=== PATIENT | male | born 1940 | race Caucasian/White ===

== ENCOUNTER → 2016-09-10 | Outpatient (CLI) | payer OTHER ==
[~2016-09-10] MED LIST: AMLO-114 PO; CALCTAB5 PO; CHOLTAB3 PO; FLM4 PO; HYDR5TAB27 PO; LOVA40TA4 PO; METO25TA3 PO; MULT-506 PO; OMEG10007 PO
[2016-09-10 12:47] LABS: BASO % 0.3 %; BASO ABS # 0.02 K/uL (0-0.2); COMPLETE YES; EOS % 3.8 %; IG% 0.3 %; LYMPH % 16.4 %; LYMPH ABS # 1.08 K/uL (1.2-3.4); MEAN CELL VOLUME 92.4 fL (80-100); MEAN CORPUSCULAR HEMOGLOBIN 31.9 pg (25-34); MEAN CORPUSCULAR HGB CONC 34.5 g/dl (32-36); MONO % 10.5 %; NEUT % 68.7 %; PLATELET COUNT 206 K/uL (130-400); RED BLOOD COUNT 4.76 M/uL (4.7-6.1); WHITE BLOOD COUNT 6.59 K/uL (4.8-10.8)
[2016-09-10 13:42] LABS: ALT/SGPT 23 U/L (12-78); AST/SGOT 23 U/L (15-37); BLOOD UREA NITROGEN 13 mg/dl (7-18); BUN/CREATININE RATIO 13.3 (10-20); CALCIUM 8.8 mg/dl (8.5-10.1); CARBON DIOXIDE 23 mmol/L (21-32); CHLORIDE 110 mmol/L (98-107); GLUCOSE 93 mg/dl (70-99); POTASSIUM 3.8 mmol/L (3.5-5.1); SODIUM 144 mmol/L (136-145)
[2016-09-10 13:53] LABS: ALB/GLOB RATIO 1.2 (0.9-2); ALKALINE PHOSPHATASE 91 U/L (45-117); CHOLESTEROL 210 mg/dl (0-200); HDL CHOLESTEROL 52 mg/dl; LDL CHOLESTEROL CALCULATED 143 mg/dl; TRIGLYCERIDES 77 mg/dl (0-150); VERY LOW DENSITY LIPOPROT CALC 15 mg/dl
--- NOTE | 2016-09-16 06:13 | CODING QUERY MEDICAL NECESSITY ---
SUPPORTING DIAGNOSIS NEEDED Dr. Szymanski, A supporting diagnosis is required for the test/procedure performed on this patient in order for us to be reimbursed by the patient's insurance. Please provide a supporting diagnosis for the following test/procedure listed below next to the test name along with your signature. *If there is no additional diagnosis for this patient that would support the following test/procedure please document that below next to the test/procedure. Test(s)/Procedure(s) that require a supporting diagnosis: * ([id number]) B12 VITAMIN LEVEL DIAGNOSIS: DATE OF SERVICE: 09/10/16 Provider Signature: Date: Thank you Rhys Naidu [facility] Information Management Once completed, please kindly fax back to [phone] For questions please call [phone]
== END | disposition home or self-care (01) ==
LOC: C.LABPBG 09:09
PROVIDERS: ATTEND Internal Medicine
DX: Z87.898 Personal history of other specified conditions (principal)

== ENCOUNTER → 2016-09-30 | Outpatient (CLI) | payer OTHER | END | disposition home or self-care (01) | LOC: C.PATHSPEC 17:41 | PROVIDERS: ATTEND Plastic Surgery | DX: C44.319 Basal cell carcinoma of skin of other parts of face (principal) ==

== ENCOUNTER → 2017-12-14 | Outpatient (CLI) | payer OTHER ==
[~2017-12-14] MED LIST changes: -AMLO-114 PO; +AMLO10TA3 PO; -METO25TA3 PO; +METO25TA4 PO
[2017-12-14 16:43] LABS: BASO % 0.1 %; BASO ABS # 0.01 K/uL (0-0.2); EOS % 4.4 %; EOS ABS # 0.35 K/uL (0-0.5); HEMATOCRIT 41.7 % (42-52); HEMOGLOBIN 13.9 g/dL (14.0-18.0); IG# 0.02 K/uL (0.00-0.02); LYMPH % 16.5 %; LYMPH ABS # 1.32 K/uL (1.2-3.4); MEAN CELL VOLUME 93.9 fL (80-100); MEAN CORPUSCULAR HEMOGLOBIN 31.3 pg (25-34); MEAN CORPUSCULAR HGB CONC 33.3 g/dl (32-36); MEAN PLATELET VOLUME 10.2 fL (7.4-10.4); MONO % 10.7 %; MONO ABS # 0.85 K/uL (0.11-0.59); NEUT ABS # 5.43 K/uL (1.4-6.5); PLATELET COUNT 201 K/uL (130-400); RED CELL DISTRIBUTION WIDTH CV 13.9 % (11.5-14.5); RED CELL DISTRIBUTION WIDTH SD 48.1 fL (36.4-46.3); WHITE BLOOD COUNT 7.98 K/uL (4.8-10.8)
[2017-12-14 17:13] LABS: ALBUMIN 3.8 gm/dl (3.4-5.0); ALKALINE PHOSPHATASE 95 U/L (45-117); ALT/SGPT 21 U/L (12-78); AST/SGOT 24 U/L (15-37); BLOOD UREA NITROGEN 23 mg/dl (7-18); CALCIUM 8.6 mg/dl (8.5-10.1); CARBON DIOXIDE 25 mmol/L (21-32); CHOLESTEROL 145 mg/dl (0-200); CREATININE 0.84 mg/dl (0.60-1.40); GLUCOSE 97 mg/dl (70-99); LDL CHOLESTEROL CALCULATED 62 mg/dl; POTASSIUM 4.2 mmol/L (3.5-5.1); SODIUM 139 mmol/L (136-145); TOTAL PROTEIN 6.8 gm/dl (6.4-8.2)
== END | disposition home or self-care (01) ==
LOC: C.LABPBG 14:27
PROVIDERS: ATTEND Internal Medicine
DX: N40.1 Benign prostatic hyperplasia with lower urinary tract symptoms (principal); I10 Essential (primary) hypertension; M54.5 Low back pain; G47.33 Obstructive sleep apnea (adult) (pediatric); E78.5 Hyperlipidemia, unspecified; R41.9 Unspecified symptoms and signs involving cognitive functions and awareness; G30.9 Alzheimer's disease, unspecified; F02.80 Dementia in other diseases classified elsewhere, unspecified severity, without behavioral disturbance, psychotic disturbance, mood disturbance, and anxiety

== ENCOUNTER 2020-01-03 18:43 | Inpatient (IN) ==
[2020-01-03] MEDS ORDERED: SODIUM CHLORIDE 0.9% 500 ML IV ONE (19:06)
[2020-01-03 19:32] LABS: Eosinophils % (auto) 1.2 %; Hematocrit (blood only) 39.8 % (42-52); Hemoglobin 13.5 g/dL (14.0-18.0); Immature Granulocytes # (auto) 0.03 K/uL (0.00-0.02); Immature Granulocytes % (auto) 0.4 %; Lymphocytes % (auto) 12.3 %; Mean Corpuscular Hemoglobin 31.8 pg (25-34); Mean Corpuscular Hgb Conc 33.9 g/dL (32-36); Mean Corpuscular Volume 93.6 fL (80-100); Mean Platelet Volume 9.8 fL (7.4-10.4); Monocytes # (auto) 0.73 K/uL (0.11-0.59); Neutrophils # (auto) 6.24 K/uL (1.4-6.5); Neutrophils % (auto) 77.1 %; Platelet Count 223 K/uL (130-400); RDW Coefficient of Variation 14.6 % (11.5-14.5); RDW Standard Deviation 49.5 fL (36.4-46.3); Red Blood Count 4.25 M/uL (4.7-6.1)
[2020-01-03 19:42] LABS: INR 1.2 (0.9-1.1); Partial Thromboplastin Ratio 0.7; Partial Thromboplastin Time 20.9 Seconds (21.0-31.0); Prothrombin Time 12.9 Seconds (9.0-12.0)
[2020-01-03 19:49] LABS: Alanine Aminotransferase 14 U/L (12-78); Albumin Level 2.9 gm/dl (3.4-5.0); Aspartate Aminotransferase 19 U/L (15-37); BUN Creatinine Ratio 22.5 (10-20); Blood Urea Nitrogen 22 mg/dl (7-18); Calcium 8.9 mg/dl (8.5-10.1); Carbon Dioxide 26 mmol/L (21-32); Chloride 106 mmol/L (98-107); Est GFR (African American) 83.5; Glucose 99 mg/dl (70-99); Lipase 99 U/L (73-393); Magnesium 2.2 mg/dl (1.8-2.4); Sodium 138 mmol/L (136-145)
--- NOTE | 2020-01-03 19:52 | XRay Report ---
XR chest 1V portable HISTORY: Atypical Chest Pain COMPARISON: Chest 06/12/2019. FINDINGS: There are low lung volumes. The heart is normal in size. No pleural effusions. No pneumotho rax. Small focal nodular density within the right midlung zone. This is nonspecific but could represe nt a nipple shadow. Otherwise, lungs are clear. Degenerative changes within the shoulders. No evidenc e for pulmonary edema. IMPRESSION: 1. Small focal nodular density within the right midlung zone. This could represent a nipple shadow. F ollow-up PA and lateral views of the chest with nipple markers can be performed on a nonemergent basi s for further evaluation. 2. Otherwise, no acute process within the chest. ACT 112: Negative or not required by law. Electronically signed by: Dillon Delong M.D. 01/03/2020 7:51 PM
[2020-01-03 19:54] LABS: Albumin Globulin Ratio 0.8 (0.9-2); Alkaline Phosphatase 102 U/L (45-117); Globulin 3.5 gm/dl (2.5-4.0); Total Protein 6.4 gm/dl (6.4-8.2); Troponin I < 0.015 ng/ml (0-0.045)
[2020-01-03] MEDS ORDERED: IOVERSOL 100ml IV ONE (22:17)
--- NOTE | 2020-01-03 22:25 | Emergency Department Note ---
Impression & Plan Hematochezia, Dementia, Atrial fibrillation, On apixaban therapy ED Provider Note NAME: ELSY CANO AGE: 79 SEX: M ARRIVES VIA: Ambulance INFORMANT: SNF, EMS ED PROVIDER(S): Delmer Nayak MD CHIEF COMPLAINT: GIB PLAN: Disposition: Admit MEDICAL DECISION MAKING: The patient is a pleasant 79-year-old gentleman with a past medical history of dementia, hypertension, hyperlipidemia, A. fib on Eliquis who presents emerge department from [facility] for several days of rectal bleeding. HPI is limited due to the patient's dementia. On arrival the patient is pleasantly confused no acute distress, afebrile stable vital signs. EKG without overt acute ischemia. Chest x-ray with out acute process though question of nodular density versus artifact. WBC and platelets within normal limits. H/H 13.5/39.8 similar to prior values in June. Chemistry without acidosis. BUN is elevated however at 22. Electrolytes and LFTs unremarkable. Troponin negative/undetectable. CT of the abdomen pelvis was performed and per preliminary stat rad report demonstrates fecal impaction with associated perirectal stranding consistent with stercoral colitis. On return from CT the patient did have a blowout and his brief which demonstrated dark brown-maroon stool that was Hemoccult positive. Attempt at rectal exam was unsuccessful as the patient had significant discomfort which would further reduce support stercoral colitis/proctitis. Suspect source of bleeding is most likely lower GI related to stercoral colitis however will provide Protonix bolus for possible upper GI source. Given ongoing hematochezia reasonable to admit the patient for further evaluation and management. Patient was developing restlessness, ordered for evening Sertraline and Seroquel in additional to patient's Haldol (given IV ). Case was discussed with Dr. Lancaster, [facility] [place], who will evaluate the patient for admission. Triage Nursing notes reviewed and agree them. Prior medical records reviewed Vital Signs: reviewed and remarkable for no significant abnormalities Differential diagnosis: Diverticulosis, AVM, coagulopathy, colitis, inflammatory bowel disease, malignancy, Sadaf-Novoa tear, esophagitis, peptic ulcer disease, variceal bl eed, gastritis, epistaxis, fissure, hemorrhoids, as well as other pathologies. ER treatment provided: See below. Diagnostics interpreted by me: ECG: Atrial fibrillation, 61 bpm, no ectopy, no overt ST elevation or depress ion, QTC 432, QRS 88. Cardiac Monitoring: An order for continuous cardiac monitoring was placed and demonstrated atrial fibrillation, 61 bpm, no ectopy. Laboratory studies: See below Imaging studies: XR chest 1V portable HISTORY: Atypical Chest Pain COMPARISON: Chest 06/12/2019. FINDINGS: There are low lung volumes. The heart is normal in size. No pleural effusions. No pneumothorax. Small focal nodular density within the right midlung zone. This is nonspecific but could represent a nipple shadow. Otherwise, lungs are clear. Degenerative changes within the shoulders. No evidence for pulmonary edema. IMPRESSION: 1. Small focal nodular density within the right midlung zone. This could represent a nipple shadow. Follow-up PA and lateral views of the chest with nipple markers can be performed on a nonemergent basis for further evaluation. 2. Otherwise, no acute process within the chest. [facility]RAD Preliminary Findings Only See Final Report For Complete Findings CT ABDOMEN & PELVIS With Contrast: Moderate stool distends the rectum suggestive of fecal impaction. Mild mucosal enhancement of the rectum with perirectal fat stranding could indicate stercoral colitis. No free air or free fluid. Diverticulosis without diverticulitis. No bowel obstruction. Normal appendix. Coronary artery calcifications. Moderate to severe atherosclerosis. Large nonenhancing exophytic cyst in the upper right kidney measuring approximately 17 cm in maximum diameter appears unchanged. Additional nonenhancing cyst in the upper right kidney measuring 2.7 cm is stable no hydronephrosis or nephrolithiasis. Prostatomegaly. Recommend correlation with PSA. Bladder wall thickening may be r elated to chronic bladder outlet obstruction. Recommend correlation with urinalysis to exclude cystitis. Dextroscoliosis with multilevel degenerative changes of the lumbar spine. Radiologist: Any Desai MD Study ready at 22:24 and initial results transmitted at 22:47 Consultation(s): Case was discussed with Dr. Lancaster, [facility] [place], who will evaluate the lor ent for admission. HPI: The patient is a pleasant 79-year-old gentleman with a past medical history of dementia, hypertension, hyperlipidemia, A. fib on Eliquis who presents emerge department from [facility] for several days of rectal bleeding. HPI is limited due to the patient's dementia. ROS: See above HPI for pertinent positives & negatives. ROS is limited due to dementia. PAST MEDICAL HISTORY:See Below PAST SURGICAL HISTORY:See Below FAMILY HISTORY:See Below SOCIAL HISTORY:See Below HOME MEDICATIONS:See Below ALLERGIES:See Below VITALS:See Below PHYSICAL EXAMINATION: GENERAL: Awake, alert, pleasantly confused, fatigued-appearing, in no distress HENT: Normocephalic, atraumatic. Oropharynx with dry mucous membranes and otherwise unremarkable. EYES: Normal conjunctiva. Sclera non-icteric. NECK: Supple. No nuchal rigidity. FROM. No JVD. RESPIRATORY: Clear to auscultation. CARDIAC: Regular rate, irregular rhythm. Extremities warm and well perfused. Pulses equal. ABDOMEN: Soft, non-distended. No tenderness to palpation. No rebound or guarding. No masses. RECTAL: Dark brown/maroon stools, hemeoccult positive. Kay-anal area with beefy erythematous rash. MUSCULOSKELETAL: Chest examination reveals no tenderness. The back is symmetrical on inspection without obvious abnormality. There is no CVA tenderness to palpation. No joint edema. LOWER EXTREMITIES: Calves are equal size bilaterally and non-tender. No edema. No discoloration. NEURO: Normal sensorium. No sensory or motor deficits noted. SKIN: No rash or jaundice noted. Delmer Nayak MD Past Med/Surg History Medical History Arthritis Atrial fibrillation Dementia HLD (hyperlipidemia) HTN (hypertension) Meningioma Renal cyst Surgical History H/O total knee replacement Inguinal hernia Family History Mother , age 87 of breast cancer. 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68, 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, 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 Feels Safe at Home: Yes Allergies Allergies Allergy/AdvReac Type Severity Reaction Status Date / Time Penicillins Allergy Unknown rash Verified 06/12/19 12:31 valacyclovir [From Valtrex] AdvReac Dizziness Verified 06/12/19 12:31 Home Meds Home Medications Medication Instructions Recorded Confirmed Fish Oil 1 cap PO QAM 03/15/18 01/03/20 amlodipine 10 mg PO QAM 03/15/18 01/03/20 donepezil 23 mg PO QAM 03/15/18 01/03/20 dutasteride 0.5 mg PO PM 03/15/18 01/03/20 lovastatin 40 mg PO PM 03/15/18 01/03/20 metoprolol succinate 25 mg PO QAM 03/15/18 01/03/20 alfuzosin 10 mg PO PM 06/03/18 01/03/20 acetaminophen 1,000 mg PO DAILY 06/12/19 01/03/20 cyanocobalamin (vitamin B-12) 1,000 mcg PO QAM 06/12/19 01/03/20 [Vitamin B-12] memantine 5 mg PO BID 06/12/19 01/03/20 mirabegron [Myrbetriq] 50 mg PO QAM 06/12/19 01/03/20 sertraline 50 mg PO PM 06/12/19 01/03/20 Abh Gel 1 applic TOPICAL BID 01/03/20 01/03/20 Frozen Nutritional Treat 1 dose PO DAILY 01/03/20 01/03/20 acetaminophen [Tylenol] 650 mg PO Q6 PRN 01/03/20 01/03/20 bisacodyl [Dulcolax (bisacodyl)] 10 mg PA UD PRN 01/03/20 01/03/20 haloperidol lactate [Haldol] 5 mg IM Q6 PRN 01/03/20 01/03/20 quetiapine [Seroquel] 25 mg PO DAILY 01/03/20 01/03/20 quetiapine [Seroquel] 50 mg PO HS 01/03/20 01/03/20 sennosides-docusate sodium 1 tab-cap PO BID 01/03/20 01/03/20 [Senokot-S] sertraline 100 mg PO QPM 01/03/20 01/03/20 tramadol [Ultram] 50 mg PO TID 01/03/20 01/03/20 Previous Rx's Medication Instructions Recorded apixaban [Eliquis] 5 mg PO BID #60 tab 03/16/18 Results & Data (ED) Vital Signs Vital Signs - 24 hr 01/03/20 18:51 01/03/20 18:58 01/03/20 19:00 Temperature Temperature Source Pulse Rate 69 69 71 Pulse Rate [Apical] Pulse Rate from SpO2 Sensor 68 68 Respiratory Rate 19 21 17 Respiratory Effort / Characteristics Respiratory Depth Blood Pressure 111/63 Blood Pressure [Left Arm] Blood Pressure Mean 68 Blood Pressure Mean [Left Arm] Pulse Oximetry 96 96 Oxygen Delivery Method Sepsis Recent Fever Within 48 Hours Sepsis New/Unexplained Change in Mental Status Sepsis Action Taken by Nursing 01/03/20 19:10 01/03/20 19:16 01/03/20 19:20 Temperature 36.7 C Temperature Source Axillary Pulse Rate 72 57 L 63 Pulse Rate [Apical] Pulse Rate from SpO2 Sensor 67 Respiratory Rate 17 20 17 Respiratory Effort / Characteristics Non-Labored Respiratory Depth Normal Blood Pressure 111/63 Blood Pressure [Left Arm] Blood Pressure Mean 79 Blood Pressure Mean [Left Arm] Pulse Oximetry 97 96 Oxygen Delivery Method Room Air Sepsis Recent Fever Within 48 Hours No Sepsis New/Unexplained Change in Mental Status No Sepsis Action Taken by Nursing No Action Required 01/03/20 19:30 01/03/20 19:31 01/03/20 19:40 Temperature Temperature Source Pulse Rate 64 63 68 Pulse Rate [Apical] Pulse Rate from SpO2 Sensor 67 65 61 Respiratory Rate 19 20 20 Respiratory Effort / Characteristics Respiratory Depth Blood Pressure 120/76 Blood Pressure [Left Arm] Blood Pressure Mean 81 Blood Pressure Mean [Left Arm] Pulse Oximetry 97 96 Oxygen Delivery Method Sepsis Recent Fever Within 48 Hours Sepsis New/Unexplained Change in Mental Status Sepsis Action Taken by Nursing 01/03/20 19:50 01/03/20 20:00 01/03/20 20:01 Temperature Temperature Source Pulse Rate 59 L 68 69 Pulse Rate [Apical] Pulse Rate from SpO2 Sensor 61 67 71 Respiratory Rate 20 23 18 Respiratory Effort / Characteristics Respiratory Depth Blood Pressure 129/88 Blood Pressure [Left Arm] Blood Pressure Mean 95 Blood Pressure Mean [Left Arm] Pulse Oximetry 98 90 99 Oxygen Delivery Method Sepsis Recent Fever Within 48 Hours Sepsis New/Unexplained Change in Mental Status Sepsis Action Taken by Nursing 01/03/20 20:10 01/03/20 20:20 01/03/20 20:38 Temperature Temperature Source Pulse Rate 67 74 Pulse Rate [Apical] Pulse Rate from SpO2 Sensor 69 69 Respiratory Rate 23 19 15 Respiratory Effort / Characteristics Respiratory Depth Blood Pressure Blood Pressure [Left Arm] Blood Pressure Mean Blood Pressure Mean [Left Arm] Pulse Oximetry 93 Oxygen Delivery Method Sepsis Recent Fever Within 48 Hours Sepsis New/Unexplained Change in Mental Status Sepsis Action Taken by Nursing 01/03/20 20:40 01/03/20 20:50 01/03/20 21:00 Temperature Temperature Source Pulse Rate 68 62 87 Pulse Rate [Apical] Pulse Rate from SpO2 Sensor Respiratory Rate 17 22 20 Respiratory Effort / Characteristics Respiratory Depth Blood Pressure Blood Pressure [Left Arm] Blood Pressure Mean Blood Pressure Mean [Left Arm] Pulse Oximetry Oxygen Delivery Method Sepsis Recent Fever Within 48 Hours Sepsis New/Unexplained Change in Mental Status Sepsis Action Taken by Nursing 01/03/20 21:02 01/03/20 21:10 01/03/20 21:58 Temperature Temperature Source Pulse Rate 86 57 L 61 Pulse Rate [Apical] Pulse Rate from SpO2 Sensor Respiratory Rate 18 19 17 Respiratory Effort / Characteristics Respiratory Depth Blood Pressure 123/71 Blood Pressure [Left Arm] Blood Pressure Mean 75 Blood Pressure Mean [Left Arm] Pulse Oximetry Oxygen Delivery Method Sepsis Recent Fever Within 48 Hours Sepsis New/Unexplained Change in Mental Status Sepsis Action Taken by Nursing 01/03/20 22:00 01/03/20 22:18 01/03/20 22:20 Temperature Temperature Source Pulse Rate 62 64 Pulse Rate [Apical] Pulse Rate from SpO2 Sensor 66 Respiratory Rate 17 18 18 Respiratory Effort / Characteristics Respiratory Depth Blood Pressure Blood Pressure [Left Arm] Blood Pressure Mean Blood Pressure Mean [Left Arm] Pulse Oximetry 96 Oxygen Delivery Method Sepsis Recent Fever Within 48 Hours Sepsis New/Unexplained Change in Mental Status Sepsis Action Taken by Nursing 01/03/20 22:30 01/03/20 22:40 01/03/20 22:50 Temperature Temperature Source Pulse Rate 83 85 Pulse Rate [Apical] Pulse Rate from SpO2 Sensor 76 Respiratory Rate 20 20 20 Respiratory Effort / Characteristics Respiratory Depth Blood Pressure Blood Pressure [Left Arm] Blood Pressure Mean Blood Pressure Mean [Left Arm] Pulse Oximetry 99 Oxygen Delivery Method Sepsis Recent Fever Within 48 Hours Sepsis New/Unexplained Change in Mental Status Sepsis Action Taken by Nursing 01/03/20 23:00 01/03/20 23:10 01/03/20 23:39 Temperature Temperature Source Pulse Rate 78 73 Pulse Rate [Apical] 77 Pulse Rate from SpO2 Sensor Respiratory Rate 29 H 23 21 Respiratory Effort / Characteristics Respiratory Depth Normal Blood Pressure Blood Pressure [Left Arm] 153/78 H Blood Pressure Mean Blood Pressure Mean [Left Arm] 103 Pulse Oximetry 98 Oxygen Delivery Method Room Air Sepsis Recent Fever Within 48 Hours Sepsis New/Unexplained Change in Mental Status Sepsis Action Taken by Nursing Laboratory Data Attestation: I reviewed the patient's lab results. Result diagrams: 01/03/20 19:18 01/03/20 19:18 Lab Results 01/03/20 01/03/20 01/03/20 Range/Units 19:18 19:18 19:18 WBC 8.10 (4.8-10.8) K/uL RBC 4.25 L (4.7-6.1) M/uL Hgb 13.5 L (14.0-18.0) g/dL Hct 39.8 L (42-52) % MCV 93.6 (80-100) fL MCH 31.8 (25-34) pg MCHC 33.9 (32-36) g/dL RDW Std Deviation 49.5 H (36.4-46.3) fL RDW Coeff of Sergio 14.6 H (11.5-14.5) % Plt Count 223 (130-400) K/uL MPV 9.8 (7.4-10.4) fL Immature Gran % (Auto) 0.4 % Neut % (Auto) 77.1 % Lymph % (Auto) 12.3 % [place] % (Auto) 9.0 % Eos % (Auto) 1.2 % Baso % (Auto) 0.0 % Neut # (Auto) 6.24 (1.4-6.5) K/uL Lymph # (Auto) 1.00 L (1.2-3.4) K/uL [place] # (Auto) 0.73 H (0.11-0.59) K/uL Eos # (Auto) 0.10 (0-0.5) K/uL Baso # (Auto) 0.00 (0-0.2) K/uL Immature Gran # (Auto) 0.03 H (0.00-0.02) K/uL PT 12.9 H (9.0-12.0) Seconds INR 1.2 H (0.9-1.1) APTT 20.9 L (21.0-31.0) Seconds PTT Ratio 0.7 Sodium 138 (136-145) mmol/L Potassium 4.0 (3.5-5.1) mmol/L Chloride 106 (98-107) mmol/L Carbon Dioxide 26 (21-32) mmol/L Anion Gap 6.0 (3-11) BUN 22 H (7-18) mg/dl Creatinine 0.98 (0.6-1.4) mg/dl Est Cr Clr Drug Dosing Not Reportable Est GFR ( Amer) 83.5 Est GFR (Non-Af Amer) 72.0 BUN/Creatinine Ratio 22.5 H (10-20) Glucose 99 (70-99) mg/dl Calcium 8.9 (8.5-10.1) mg/dl Magnesium 2.2 (1.8-2.4) mg/dl Total Bilirubin 1.0 (0.2-1) mg/dl AST 19 (15-37) U/L ALT 14 (12-78) U/L Alkaline Phosphatase 102 (45-117) U/L Troponin I < 0.015 (0-0.045) ng/ml Total Protein 6.4 (6.4-8.2) gm/dl Albumin 2.9 L (3.4-5.0) gm/dl Globulin 3.5 (2.5-4.0) gm/dl Albumin/Globulin Ratio 0.8 L (0.9-2) Lipase 99 (73-393) U/L Blood Type Antibody Screen 01/03/20 Range/Units 19:18 WBC (4.8-10.8) K/uL RBC (4.7-6.1) M/uL Hgb (14.0-18.0) g/dL Hct (42-52) % MCV (80-100) fL MCH (25-34) pg MCHC (32-36) g/dL RDW Std Deviation (36.4-46.3) fL RDW Coeff of Sergio (11.5-14.5) % Plt Count (130-400) K/uL MPV (7.4-10.4) fL Immature Gran % (Auto) % Neut % (Auto) % Lymph % (Auto) % [place] % (Auto) % Eos % (Auto) % Baso % (Auto) % Neut # (Auto) (1.4-6.5) K/uL Lymph # (Auto) (1.2-3.4) K/uL [place] # (Auto) (0.11-0.59) K/uL Eos # (Auto) (0-0.5) K/uL Baso # (Auto) (0-0.2) K/uL Immature Gran # (Auto) (0.00-0.02) K/uL PT (9.0-12.0) Seconds INR (0.9-1.1) APTT (21.0-31.0) Seconds PTT Ratio Sodium (136-145) mmol/L Potassium (3.5-5.1) mmol/L Chloride (98-107) mmol/L Carbon Dioxide (21-32) mmol/L Anion Gap (3-11) BUN (7-18) mg/dl Creatinine (0.6-1.4) mg/dl Est Cr Clr Drug Dosing Est GFR ( Amer) Est GFR (Non-Af Amer) BUN/Creatinine Ratio (10-20) Glucose (70-99) mg/dl Calcium (8.5-10.1) mg/dl Magnesium (1.8-2.4) mg/dl Total Bilirubin (0.2-1) mg/dl AST (15-37) U/L ALT (12-78) U/L Alkaline Phosphatase (45-117) U/L Troponin I (0-0.045) ng/ml Total Protein (6.4-8.2) gm/dl Albumin (3.4-5.0) gm/dl Globulin (2.5-4.0) gm/dl Albumin/Globulin Ratio (0.9-2) Lipase (73-393) U/L Blood Type AB Positive Antibody Screen NEGATIVE Administered Medications Discontinued Medications Haloperidol Lactate (Haloperidol Lactate 5 Mg/Ml 1 Ml Vial) 2 mg IV NOW STA Stop: 01/03/20 23:17 Last Admin: 01/03/20 23:39 Dose: 2 mg Documented by: [id number] Haloperidol Lactate (Haloperidol Lactate 5 Mg/Ml 1 Ml Vial) 5 mg IM NOW STA Stop: 01/04/20 01:23 Last Admin: 01/04/20 01:33 Dose: 5 mg Documented by: [id number] Sodium Chloride (Nss) 500 mls @ 999 mls/hr IV .Q31M ONE Stop: 01/03/20 19:36 Last Infusion: 01/03/20 20:45 Dose: 0 mls/hr Documented by: [id number] Admin: 01/03/20 19:25 Dose: 999 mls/hr Documented by: [id number] Pantoprazole Sodium 40 mg/ (Syringe) 10 mls @ 5 mls/min IV NOW ONE Stop: 01/03/20 22:49 Last Admin: 01/03/20 23:39 Dose: 5 mls/min Documented by: [id number] Ioversol (Ioversol 100ml) 90 ml IV ONCE ONE Stop: 01/03/20 22:18 Last Admin: 01/03/20 22:18 Dose: 90 ml Documented by: [id number] Quetiapine Fumarate (Quetiapine Fumarate 25 Mg Tablet) 50 mg PO NOW STA Stop: 01/03/20 23:17 Last Admin: 01/03/20 23:39 Dose: 50 mg Documented by: [id number] Sertraline HCl (Sertraline Hcl 50 Mg Tablet) 50 mg PO NOW ONE Stop: 01/03/20 23:17 Last Admin: 01/03/20 23:39 Dose: 50 mg Documented by: [id number] Blood Pressure Blood Pressure Findings: Normal blood pressure Blood Pressure Disposition: further management by hospitalist Discharge Plan Visit Data Chief Complaint: Rectal Bleed Stated Complaint: RECTAL BLEED ED Provider: Delmer Nayak Discharge Problem: Hematochezia, Dementia, Atrial fibrillation, On apixaban therapy Patient Disposition: Admitted As Inpatient Discharge Instructions Interventions: ED Discharge Assessment Last Done: 01/04/20 00:38 Discharge Problem: Dementia Qualifiers: Dementia type: Alzheimer's disease Alzheimer's disease onset: unspecified onset Dementia behavioral disturbance: with behavioral disturbance Qualified Code(s): G30.9 - Alzheimer's disease, unspecified
[2020-01-03] MEDS ORDERED: PANTOprazole 40 MG in SYRINGE 0 ML IV ONE (22:48)
[2020-01-03] MEDS ORDERED: QUETIAPINE FUMARATE 25 MG TABLET PO STA (23:16)
[2020-01-03] MEDS ORDERED: HALOPERIDOL LACTATE 5 MG/ML 1 ML VIAL IV STA (23:16)
[2020-01-03] MEDS ORDERED: SERTRALINE HCL 50 MG TABLET PO ONE (23:16)
[2020-01-04] MEDS ORDERED: ACETAMINOPHEN 325 MG TAB PO PRN (01:13)
[2020-01-04] MEDS ORDERED: bisacodyL 10 MG SUPP PR PRN (01:13)
[2020-01-04] MEDS ORDERED: HALOPERIDOL LACTATE 5 MG/ML 1 ML VIAL IM STA (01:22)
--- NOTE | 2020-01-04 01:27 | History & Physical Report ---
Date of Service January 04, 2020 Assessment & Plan (1) Hematochezia: 79-year-old male with history of hypertension, hyperlipidemia, atrial fibrillation on apixaban anticoagulation and severe dementia presenting from [facility] with 3 days of reported [address]. CT suggestive of stercoral colitis, possible fecal impaction. Patient had large, explosive bowel movement after returning from CT. No aston blood noted. He is afebrile, hemodynamically stable, H&H slightly below baseline. Suspect symptoms from fecal impaction resulting in stercoral colitis which has hopefully resolved after explosive bowel movement. Observation to medical floor Repeat CBC in a.m. We will hold apixaban for now Continue bowel regimen Present on Admission?: Yes (2) Atrial fibrillation: Rate controlled, anticoagulated on apixaban Continue metoprolol 25 mg p.o. every morning Holding apixaban as above Continue to monitor Present on Admission?: Yes (3) BPH (benign prostatic hyperplasia): Chronic. Stable. Continue dutasteride Continue alfuzosin Present on Admission?: Yes (4) Dementia: Patient with severe dementia, behavioral disturbances One-to-one observation Continue Aricept 23 mg p.o. every morning Continue Haldol 5 mg IM every 6 hours as needed Continue memantine 5 mg p.o. twice daily Continue Seroquel 50 mg p.o. nightly, 25 mg p.o. daily Continue sertraline Present on Admission?: Yes (5) Hyperlipidemia: Chronic. Continue lovastatin 40 mg p.o. every afternoon Present on Admission?: Yes (6) Hypertension: Blood pressure stable Continue amlodipine 10 mg p.o. every morning FENHep-Lock, electrolytes within normal limits, heart healthy diet as tolerated ProphylaxisSCDs to bilateral lower extremities CodeDNR/DNI per review of medical records Present on Admission?: Yes Admission and Anticipated Discharge Date Admission Date: January 04, 2020 History of Present Illness Chief Complaint: Bright red blood per rectum Primary Care Provider: [facility] Patient with underlying dementia, unable to provide history or participate in exam. Information gleaned through chart review and discussion with ER staff. Anurag Ashton is an 79-year-old male history of dementia, hypertension, hyperlipidemia, atrial fibrillation on Eliquis anticoagulation presenting from [facility] with reported 3 days of hematochezia. No additional complaints mentioned. In the ER, patient afebrile, hemodynamically stable, no acute distress. Patient had a CT of the abdomen which revealed fecal impaction and perirectal stranding consistent with stercoral colitis. Patient had large explosive bowel movement upon return from CT. Stool noted to be brown/maroon and Hemoccult positive. Rectal exam unsuccessful due to discomfort. Patient refusing. ER course: Evening medications administeredsertraline 50 mg, Seroquel 50 mg, Haldol 2 mg IV, Protonix 40mg IV x 1 dose, NSS x 500mL Allergies Allergy/AdvReac Type Severity Reaction Status Date / Time Penicillins Allergy Unknown rash Verified 06/12/19 12:31 valacyclovir [From Valtrex] AdvReac Dizziness Verified 06/12/19 12:31 Home Medications Home Medications Medication Instructions Recorded Confirmed Type Fish Oil 1 cap PO QAM 03/15/18 01/03/20 History amlodipine 10 mg PO QAM 03/15/18 01/03/20 History donepezil 23 mg PO QAM 03/15/18 01/03/20 History dutasteride 0.5 mg PO PM 03/15/18 01/03/20 History lovastatin 40 mg PO PM 03/15/18 01/03/20 History metoprolol succinate 25 mg PO QAM 03/15/18 01/03/20 History apixaban [Eliquis] 5 mg PO BID #60 tab 03/16/18 01/03/20 Rx alfuzosin 10 mg PO PM 06/03/18 01/03/20 History acetaminophen 1,000 mg PO DAILY 06/12/19 01/03/20 History cyanocobalamin (vitamin B-12) 1,000 mcg PO QAM 06/12/19 01/03/20 History [Vitamin B-12] memantine 5 mg PO BID 06/12/19 01/03/20 History mirabegron [Myrbetriq] 50 mg PO QAM 06/12/19 01/03/20 History sertraline 50 mg PO PM 06/12/19 01/03/20 History Abh Gel 1 applic TOPICAL BID 01/03/20 01/03/20 History Frozen Nutritional Treat 1 dose PO DAILY 01/03/20 01/03/20 History acetaminophen [Tylenol] 650 mg PO Q6 PRN 01/03/20 01/03/20 History bisacodyl [Dulcolax (bisacodyl)] 10 mg AR UD PRN 01/03/20 01/03/20 History haloperidol lactate [Haldol] 5 mg IM Q6 PRN 01/03/20 01/03/20 History quetiapine [Seroquel] 25 mg PO DAILY 01/03/20 01/03/20 History quetiapine [Seroquel] 50 mg PO HS 01/03/20 01/03/20 History sennosides-docusate sodium 1 tab-cap PO BID 01/03/20 01/03/20 History [Senokot-S] sertraline 100 mg PO QPM 01/03/20 01/03/20 History tramadol [Ultram] 50 mg PO TID 01/03/20 01/03/20 History Past Med/Surg History Medical History (Updated 01/04/20 @ 01:37 by Kianna Lancaster DO) Arthritis Atrial fibrillation Dementia HLD (hyperlipidemia) HTN (hypertension) Meningioma Renal cyst Surgical History H/O total knee replacement Inguinal hernia Family History Mother , age 87 of breast cancer. 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 Does not answer questions or follow commands Skin: warm, dry, intact, no rashes or lesions HEENT: NC/AT, PERRL, EOMI, anicteric sclera, conjunctiva without injection, external ear normal to inspection and nontender, nares patent, moist mucus membranes, dentition intact, no oropharyngeal lesions, neck supple, trachea midline, no LAD, no thyromegaly, no JVD Heart: +S1/S2, irregularly irregular, no m/r/g Lungs: equal air entry bilaterally, no rales/rhonchi/wheezes, poor effort Abd: +BS, soft, NT/ND, no masses/organomegaly/ascites Ext: warm, 2+ pulses in UE/LE bilaterally, no clubbing/cyanosis or edema Neuro: Patient does not answer questions or follow commands, trying to climb out of bed, moving all extremities with equal strength Results & Data Results & Data ([facility]) Vital Signs (Past 12 Hours) Vital Signs Temp Pulse Pulse Resp BP BP Pulse Ox 01/04/20 00:38 77 20 142/84 H 95 01/03/20 23:39 77 21 153/78 H 98 01/03/20 23:10 73 23 01/03/20 23:00 78 29 H 01/03/20 22:50 85 20 01/03/20 22:40 20 01/03/20 22:30 83 20 99 01/03/20 22:20 64 18 96 01/03/20 22:18 18 01/03/20 22:00 62 17 01/03/20 21:58 61 17 01/03/20 21:10 57 L 19 01/03/20 21:02 86 18 123/71 01/03/20 21:00 87 20 01/03/20 20:50 62 22 01/03/20 20:40 68 17 01/03/20 20:38 15 01/03/20 20:20 74 19 01/03/20 20:10 67 23 93 01/03/20 20:01 69 18 129/88 99 01/03/20 20:00 68 23 90 01/03/20 19:50 59 L 20 98 01/03/20 19:40 68 20 96 01/03/20 19:31 63 20 120/76 97 01/03/20 19:30 64 19 01/03/20 19:20 63 17 01/03/20 19:16 36.7 C 57 L 20 111/63 96 01/03/20 19:10 72 17 97 01/03/20 19:00 71 17 01/03/20 18:58 69 21 96 01/03/20 18:51 69 19 111/63 96 Laboratory Results Lab Results 01/03/20 01/03/20 01/03/20 Range/Units 19:18 19:18 19:18 WBC 8.10 (4.8-10.8) K/uL RBC 4.25 L (4.7-6.1) M/uL Hgb 13.5 L (14.0-18.0) g/dL Hct 39.8 L (42-52) % MCV 93.6 (80-100) fL MCH 31.8 (25-34) pg MCHC 33.9 (32-36) g/dL RDW Std Deviation 49.5 H (36.4-46.3) fL RDW Coeff of Sergio 14.6 H (11.5-14.5) % Plt Count 223 (130-400) K/uL MPV 9.8 (7.4-10.4) fL Immature Gran % (Auto) 0.4 % Neut % (Auto) 77.1 % Lymph % (Auto) 12.3 % Wilkes % (Auto) 9.0 % Eos % (Auto) 1.2 % Baso % (Auto) 0.0 % Neut # (Auto) 6.24 (1.4-6.5) K/uL Lymph # (Auto) 1.00 L (1.2-3.4) K/uL Wilkes # (Auto) 0.73 H (0.11-0.59) K/uL Eos # (Auto) 0.10 (0-0.5) K/uL Baso # (Auto) 0.00 (0-0.2) K/uL Immature Gran # (Auto) 0.03 H (0.00-0.02) K/uL PT 12.9 H (9.0-12.0) Seconds INR 1.2 H (0.9-1.1) APTT 20.9 L (21.0-31.0) Seconds PTT Ratio 0.7 Sodium 138 (136-145) mmol/L Potassium 4.0 (3.5-5.1) mmol/L Chloride 106 (98-107) mmol/L Carbon Dioxide 26 (21-32) mmol/L Anion Gap 6.0 (3-11) BUN 22 H (7-18) mg/dl Creatinine 0.98 (0.6-1.4) mg/dl Est Cr Clr Drug Dosing Not Reportable Est GFR ( Amer) 83.5 Est GFR (Non-Af Amer) 72.0 BUN/Creatinine Ratio 22.5 H (10-20) Glucose 99 (70-99) mg/dl Calcium 8.9 (8.5-10.1) mg/dl Magnesium 2.2 (1.8-2.4) mg/dl Total Bilirubin 1.0 (0.2-1) mg/dl AST 19 (15-37) U/L ALT 14 (12-78) U/L Alkaline Phosphatase 102 (45-117) U/L Troponin I < 0.015 (0-0.045) ng/ml Total Protein 6.4 (6.4-8.2) gm/dl Albumin 2.9 L (3.4-5.0) gm/dl Globulin 3.5 (2.5-4.0) gm/dl Albumin/Globulin Ratio 0.8 L (0.9-2) Lipase 99 (73-393) U/L Blood Type Antibody Screen 01/03/20 Range/Units 19:18 WBC (4.8-10.8) K/uL RBC (4.7-6.1) M/uL Hgb (14.0-18.0) g/dL Hct (42-52) % MCV (80-100) fL MCH (25-34) pg MCHC (32-36) g/dL RDW Std Deviation (36.4-46.3) fL RDW Coeff of Sergio (11.5-14.5) % Plt Count (130-400) K/uL MPV (7.4-10.4) fL Immature Gran % (Auto) % Neut % (Auto) % Lymph % (Auto) % Wilkes % (Auto) % Eos % (Auto) % Baso % (Auto) % Neut # (Auto) (1.4-6.5) K/uL Lymph # (Auto) (1.2-3.4) K/uL Wilkes # (Auto) (0.11-0.59) K/uL Eos # (Auto) (0-0.5) K/uL Baso # (Auto) (0-0.2) K/uL Immature Gran # (Auto) (0.00-0.02) K/uL PT (9.0-12.0) Seconds INR (0.9-1.1) APTT (21.0-31.0) Seconds PTT Ratio Sodium (136-145) mmol/L Potassium (3.5-5.1) mmol/L Chloride (98-107) mmol/L Carbon Dioxide (21-32) mmol/L Anion Gap (3-11) BUN (7-18) mg/dl Creatinine (0.6-1.4) mg/dl Est Cr Clr Drug Dosing Est GFR ( Amer) Est GFR (Non-Af Amer) BUN/Creatinine Ratio (10-20) Glucose (70-99) mg/dl Calcium (8.5-10.1) mg/dl Magnesium (1.8-2.4) mg/dl Total Bilirubin (0.2-1) mg/dl AST (15-37) U/L ALT (12-78) U/L Alkaline Phosphatase (45-117) U/L Troponin I (0-0.045) ng/ml Total Protein (6.4-8.2) gm/dl Albumin (3.4-5.0) gm/dl Globulin (2.5-4.0) gm/dl Albumin/Globulin Ratio (0.9-2) Lipase (73-393) U/L Blood Type AB Positive Antibody Screen NEGATIVE Diagnostic Findings XR chest 1V portable HISTORY: Atypical Chest Pain COMPARISON: Chest 06/12/2019. FINDINGS: There are low lung volumes. The heart is normal in size. No pleural effusions. No pneumothorax. Small focal nodular density within the right midlung zone. This is nonspecific but could represent a nipple shadow. Otherwise, lungs are clear. Degenerative changes within the shoulders. No evidence for pulmonary edema. IMPRESSION: 1. Small focal nodular density within the right midlung zone. This could represent a nipple shadow. Follow-up PA and lateral views of the chest with nipple markers can be performed on a nonemergent basis for further evaluation. 2. Otherwise, no acute process within the chest. ACT 112: Negative or not required by law. Electronically signed by: Dillon Delong M.D. 01/03/2020 7:51 PM Dictated: 01/03/201946 Transcribed: 01/03/201946 CT abdomen pelvis with contrast: Per stat readmoderate stool distends the rectum suggestive of fecal impaction. Mild mucosal enhancement of the rectum with perirectal fat stranding could indicate stair coral colitis. No free air or free fluid. Diverticulosis without diverticulitis. No bowel obstruction. Normal appendix. Coronary artery calcifications. Moderate to severe a therosclerosis. Large nonenhancing exophytic cyst in the upper right kidney measuring approximate 17 cm in maximum diameter appears unchanged. Additional nonenhancing cyst in the upper right kidney measuring 2.7 cm stable no hydronephrosis or nephrolithiasis. Prostatic to megaly. Recommend correlation with PSA. Bladder wall thickening may be related to chronic bladder outlet obstruction. Recommend correlation with urinalysis to exclude cystitis. Dextroscoliosis with multilevel degenerative changes of the lumbar spine. ECG Additional Comments: EKG with atrial fibrillation at 61 bpm, normal axis, QRS = 88, QTc = 432, no acute ischemic changes Code Status & VTE Plan VTE Prophylaxis Plan VTE Prophylaxis will be ordered: Yes PG Care Time/CCT Total # of Minutes Spent Total Time Spent with Patient: Total time spent is greater than 50% in coordination of care (as documented) at patient's floor/unit and/or counseling patient: Coding Level of Care Code 69130 OBS Care - Level 3 Diagnoses Hematochezia K92.1 Atrial fibrillation I48.91 Atrial fibrillation type: unspecified BPH (benign prostatic hyperplasia) N40.0 Lower urinary tract symptom presence: symptoms absent Dementia G30.9; F02.81 Dementia type: Alzheimer's disease Dementia behavioral disturbance: with behavioral disturbance Alzheimer's disease onset: unspecified onset Hyperlipidemia E78.5 Hyperlipidemia type: unspecified Hypertension I10 Hypertension type: essential hypertension (1) Atrial fibrillation Atrial fibrillation type: unspecified Qualified Code(s): I48.91 - Unspecified atrial fibrillation (2) BPH (benign prostatic hyperplasia) Lower urinary tract symptom presence: symptoms absent Qualified Code(s): N40.0 - Benign prostatic hyperplasia without lower urinary tract symptoms (3) Dementia Dementia type: Alzheimer's disease Dementia behavioral disturbance: with behavioral disturbance Alzheimer's disease onset: unspecified onset Qualified Code(s): G30.9 - Alzheimer's disease, unspecified; F02.81 - Dementia in other diseases classified elsewhere with behavioral disturbance (4) Hyperlipidemia Hyperlipidemia type: unspecified Qualified Code(s): E78.5 - Hyperlipidemia, unspecified (5) Hypertension Hypertension type: essential hypertension Qualified Code(s): I10 - Essential (primary) hypertension
[2020-01-04] MEDS: AVODART~ORDER AWAITING ACTION SCH ×2 (02:38→11:31)
--- NOTE | 2020-01-04 07:42 | CT Scan Report ---
CT SCAN OF THE ABDOMEN AND PELVIS WITH IV CONTRAST CLINICAL HISTORY: Hematochezia. COMPARISON STUDY: Abdominal CT dated 06/03/2018. TECHNIQUE: Following the IV administration of 90 cc of Optiray 320, CT scan of the abdomen and pelvi s is performed from the lung bases to the proximal femora. Images are reviewed in the axial, sagittal , and coronal planes. IV contrast was administered without complication. A dose lowering technique wa s utilized adhering to the principles of ALARA. The examination is degraded by motion artifact, as we ll as by streak artifact from the arms which could not be elevated above the abdomen. CT DOSE: 821.65 mGy.cm FINDINGS: Lung bases: The heart is normal in size noting trace pericardial effusion. The coronary arteries are densely calcified. There is chronic elevation of the right hemidiaphragm. The lung bases are clear no ting dependent atelectasis. Liver: The contrast-enhanced liver is normal in size, contour, and attenuation. There is no intrahepa tic biliary ductal dilatation. The hepatic veins and portal veins are patent. Gallbladder: There are layering gallstones with no CT evidence of acute cholecystitis. Spleen: Normal in size and attenuation. Pancreas: Moderately atrophic and grossly unremarkable. Adrenal glands: Unremarkable. Kidneys: The contrast enhanced kidneys are atrophic and without hydronephrosis. The kidneys enhance s ymmetrically. An 18 cm cyst arises from the lower pole of the right kidney. An additional 2.6 cm cyst is noted in the right upper pole. Abdominal vasculature: The abdominal aorta is normal in course and caliber noting advanced atheroscle rotic calcification. Bowel: There is rectosigmoid fecal retention. There is mild rectal wall thickening and perirectal inf lammation suggesting proctitis. No bowel obstruction is seen. There is mild colonic diverticulosis wi thout CT evidence of acute diverticulitis. The appendix is well-visualized and normal. Peritoneum: There is no intraperitoneal free air or abdominal ascites. Lymphadenopathy: None. Pelvic viscera: The prostate gland is enlarged and heterogeneous noting median lobe hypertrophy. The bladder wall is thickened and trabeculated indicating chronic outlet obstruction. There is pericystic infiltration. Skeletal structures: The skeletal structures are osteopenic. There is moderate lumbosacral spondylosi s and mild scoliosis. No lytic or blastic lesions are seen. IMPRESSION: 1. Streak and motion compromised examination. 2. There is rectosigmoid fecal retention with associated rectal wall thickening and mild perirectal i nflammation. Correlate clinically for evidence of proctitis. 3. Prostatomegaly with evidence of chronic bladder outlet obstruction. Pericystic inflammation is non specific. Correlate clinically and with urinalysis for evidence of superimposed cystitis. 4. Mild colonic diverticulosis without CT evidence of acute diverticulitis. 5. Cholelithiasis. 6. Additional findings as above. ACT 112: Negative or not required by law. Electronically signed by: Be Forte M.D. 01/04/2020 7:41 AM
--- NOTE | 2020-01-04 07:57 | Electrocardiogram Report ---
Test Reason : Blood Pressure : / mmHG Vent. Rate : 061 BPM Atrial Rate : 043 BPM P-R Int : 000 ms QRS Dur : 088 ms QT Int : 430 ms P-R-T Axes : 000 051 054 degrees QTc Int : 432 ms Atrial fibrillation Low voltage QRS Abnormal ECG When compared with ECG of 12-JUN-2019 11:35, Borderline Criteria for Septal infarct no longer present Otherwise no significant change Confirmed by Esa Mckeon ([id number]) on 01/04/2020 7:57:08 AM Referred By: [facility] Confirmed By:Esa Mckeon
[2020-01-04] MEDS ORDERED: PNEUMOCOCCAL Polysaccharide Vaccine 25mcg/0.5mL vial/Syr IM ONE (08:00)
[2020-01-04] MEDS ORDERED: ABH TOP SCH (09:00)
[2020-01-04] MEDS: MEMANTINE HCL 5 MG TAB PO SCH ×2 (11:31→21:28)
[2020-01-04] MEDS: MIRABEGRON ER 25 MG TAB PO SCH (11:31)
[2020-01-04] MEDS: ACETAMINOPHEN 500 MG TAB PO SCH (11:32)
[2020-01-04] MEDS: CYANOCOBALAMIN 500 MCG TABLET (VITAMIN B-12) PO SCH (11:33)
[2020-01-04] MEDS: AMLODIPINE BESYLATE 5 MG TAB PO SCH (11:33)
[2020-01-04] MEDS: QUETIAPINE FUMARATE 25 MG TABLET PO SCH ×2 (11:33→21:32)
[2020-01-04] MEDS: DOCUSATE SODIUM/SENNA 50/8.6MG TAB PO SCH ×2 (11:34→21:30)
[2020-01-04] MEDS: METOPROLOL SUCC 25MG EXT REL TAB PO SCH (11:34)
[2020-01-04] MEDS: TRAMADOL HCL 50 MG TABLET PO SCH ×3 (12:58→21:34)
--- NOTE | 2020-01-04 14:01 | Hospitalist Progress Note ---
Date of Service January 04, 2020 Assessment & Plan (1) Hematochezia: CT a/p on 01/02 was suggestive of stercoral colitis, possible fecal impaction. Suspect symptoms from fecal impaction resulting in stercoral colitis which will hopefully resolve with improving stooling. Hold apixaban - Continue stool softener. (2) Atrial fibrillation: Rate controlled, anticoagulated on apixaban at baseline. Continue metoprolol 25 mg p.o. every morning Holding apixaban as above Continue to monitor (3) BPH (benign prostatic hyperplasia): Chronic. Stable. Continue finasteride per formulary (instead of dutasteride). Continue tamsulosin for alfuzosin (4) Dementia: Patient with severe dementia, behavioral disturbances. One-to-one observation as needed. Continue Aricept 23 mg p.o. every morning Continue Haldol 5 mg IM every 6 hours as needed Continue memantine 5 mg p.o. twice daily Continue Seroquel 50 mg p.o. nightly, 25 mg p.o. daily Continue sertraline (5) Hyperlipidemia: Chronic. Continue lovastatin 40 mg p.o. every afternoon (6) Hypertension: Blood pressure stable at 115/70 today. Continue amlodipine 10 mg p.o. every morning (7) DVT prophylaxis: SCDs - Given hematochezia, will defer heparin for now. Admission and Anticipated Discharge Date Admission Date: January 04, 2020 Subjective Unable to answer yes/no questions. Review of Systems Review of Systems: Unobtainable due to cognitive status Physical Exam Constitutional: WD/WN, vitals as above + physical limitations Eyes: EOM intact bilaterally; no conjunctival abnormality ENMT: external ear and nose normal, oropharynx normal Neck: trachea midline, no thyromegaly normal visual inspection Respiratory: normal respiratory effort, lungs clear to auscultation no respiratory distress Cardiovascular: RRR, no murmur, no edema Gastrointestinal (Abdomen): Inspection/Auscultation: abdomen normal to inspection; abdomen not distended Rectal Exam: + rectal tenderness; normal sphincter tone and + abnormal visual inspection of rectum (Mild hematochezia) Musculoskeletal: no cyanosis or clubbing, extremities motor strength 5/5 Skin: no rashes, warm and dry Neurologic: moves all extremities and awake Psychiatric: Orientation: alert and cooperative; + not oriented x 3 Results & Data Results & Data ([facility]) Vital Signs (Past 12 Hours) Vital Signs Temp Pulse Resp BP Pulse Ox 01/04/20 07:59 36.6 C 63 18 115/69 94 PG Care Time/CCT Total # of Minutes Spent Total Time Spent with Patient: Total time spent is greater than 50% in coordination of care (as documented) at patient's floor/unit and/or counseling patient: Coding Level of Care Code 28371 Subseq Hosp Care Lvl 3 Diagnoses Hematochezia K92.1 Atrial fibrillation I48.91 Atrial fibrillation type: unspecified BPH (benign prostatic hyperplasia) N40.0 Lower urinary tract symptom presence: symptoms absent Dementia G30.9; F02.81 Dementia type: Alzheimer's disease Alzheimer's disease onset: unspecified onset Dementia behavioral disturbance: with behavioral disturbance Hyperlipidemia E78.5 Hyperlipidemia type: unspecified Hypertension I10 Hypertension type: essential hypertension DVT prophylaxis Z29.9 (1) Atrial fibrillation Atrial fibrillation type: unspecified Qualified Code(s): I48.91 - Unspecified atrial fibrillation (2) BPH (benign prostatic hyperplasia) Lower urinary tract symptom presence: symptoms absent Qualified Code(s): N40.0 - Benign prostatic hyperplasia without lower urinary tract symptoms (3) Dementia Dementia type: Alzheimer's disease Alzheimer's disease onset: unspecified onset Dementia behavioral disturbance: with behavioral disturbance Qualified Code(s): G30.9 - Alzheimer's disease, unspecified; F02.81 - Dementia in other diseases classified elsewhere with behavioral disturbance (4) Hyperlipidemia Hyperlipidemia type: unspecified Qualified Code(s): E78.5 - Hyperlipidemia, unspecified (5) Hypertension Hypertension type: essential hypertension Qualified Code(s): I10 - Essential (primary) hypertension
[2020-01-04] MEDS: HALOPERIDOL LACTATE 5 MG/ML 1 ML VIAL IM PRN (16:13)
[2020-01-04] MEDS: DONEPEZIL HCL 10 MG TAB PO SCH (16:43)
[2020-01-04] MEDS: POLYETHYLENE (MIRALAX) 17 GM PACK PO SCH (16:58)
[2020-01-04] MEDS: ANUSOL SUPP 1 EA PR SCH (21:27)
[2020-01-04] MEDS: LOVASTATIN 20 MG TAB PO SCH (21:28)
[2020-01-04] MEDS: SERTRALINE HCL 50 MG TABLET PO SCH (21:29)
[2020-01-04] MEDS: FINASTERIDE 5 MG TAB PO SCH (21:29)
[2020-01-04] MEDS: ALFUZOSIN HCL 10 MG TAB PO SCH (21:31)
[2020-01-04] MEDS: SERTRALINE HCL 100 MG TABLET PO SCH (21:31)
[2020-01-05 08:05] LABS: Basophils # (auto) 0.01 K/uL (0-0.2); Basophils % (auto) 0.1 %; Eosinophils % (auto) 5.4 %; Hematocrit (blood only) 40.3 % (42-52); Hemoglobin 13.7 g/dL (14.0-18.0); Immature Granulocytes # (auto) 0.04 K/uL (0.00-0.02); Immature Granulocytes % (auto) 0.5 %; Lymphocytes # (auto) 0.88 K/uL (1.2-3.4); Lymphocytes % (auto) 11.8 %; Mean Corpuscular Hemoglobin 31.4 pg (25-34); Mean Corpuscular Volume 92.2 fL (80-100); Mean Platelet Volume 9.7 fL (7.4-10.4); Monocytes # (auto) 0.79 K/uL (0.11-0.59); Monocytes % (auto) 10.6 %; Neutrophils # (auto) 5.35 K/uL (1.4-6.5); Neutrophils % (auto) 71.6 %; Platelet Count 203 K/uL (130-400); RDW Coefficient of Variation 14.6 % (11.5-14.5); RDW Standard Deviation 49.4 fL (36.4-46.3); Red Blood Count 4.37 M/uL (4.7-6.1); White Blood Count 7.47 K/uL (4.8-10.8)
[2020-01-05 08:38] LABS: BUN Creatinine Ratio 15.6 (10-20); Blood Urea Nitrogen 16 mg/dl (7-18); Calcium 8.9 mg/dl (8.5-10.1); Carbon Dioxide 26 mmol/L (21-32); Chloride 108 mmol/L (98-107); Est GFR (African American) 82.4; Est GFR (Non-African American) 71.1; Glucose 100 mg/dl (70-99); Magnesium 2.2 mg/dl (1.8-2.4); Potassium 3.5 mmol/L (3.5-5.1); Sodium 140 mmol/L (136-145)
[2020-01-05] MEDS: DONEPEZIL HCL 10 MG TAB PO SCH (10:19)
[2020-01-05] MEDS: MEMANTINE HCL 5 MG TAB PO SCH ×2 (10:20→21:32)
[2020-01-05] MEDS: AMLODIPINE BESYLATE 5 MG TAB PO SCH (10:20)
[2020-01-05] MEDS: ANUSOL SUPP 1 EA PR SCH ×2 (10:20→21:27)
[2020-01-05] MEDS: CYANOCOBALAMIN 500 MCG TABLET (VITAMIN B-12) PO SCH (10:20)
[2020-01-05] MEDS: POLYETHYLENE (MIRALAX) 17 GM PACK PO SCH (10:21)
[2020-01-05] MEDS: ACETAMINOPHEN 500 MG TAB PO SCH (10:21)
[2020-01-05] MEDS: METOPROLOL SUCC 25MG EXT REL TAB PO SCH (10:21)
[2020-01-05] MEDS: DOCUSATE SODIUM/SENNA 50/8.6MG TAB PO SCH ×2 (10:22→21:32)
[2020-01-05] MEDS: MIRABEGRON ER 25 MG TAB PO SCH (10:22)
[2020-01-05] MEDS: QUETIAPINE FUMARATE 25 MG TABLET PO SCH ×2 (10:24→21:32)
[2020-01-05] MEDS: TRAMADOL HCL 50 MG TABLET PO SCH ×3 (10:25→21:38)
--- NOTE | 2020-01-05 13:11 | Hospitalist Progress Note ---
Date of Service January 05, 2020 Assessment & Plan (1) Hematochezia: CT a/p on 01/02 was suggestive of stercoral colitis, possible fecal impaction. Suspect symptoms from fecal impaction resulting in stercoral colitis which will hopefully resolve with improving stooling. Hold apixaban - Continue stool softener. Added steroid suppository on 01/03 for possible hemorrhoid and proctitis. (2) Atrial fibrillation: Rate controlled, anticoagulated on apixaban at baseline. Continue metoprolol 25 mg p.o. every morning Holding apixaban as above Continue to monitor (3) BPH (benign prostatic hyperplasia): Chronic. Stable. Continue finasteride per formulary (instead of dutasteride). Continue alfuzosin (4) Dementia: Patient with severe dementia, behavioral disturbances. One-to-one observation as needed. Continue Aricept 23 mg p.o. every morning Continue Haldol 5 mg IM every 6 hours as needed Continue memantine 5 mg p.o. twice daily Continue Seroquel 50 mg p.o. nightly, 25 mg p.o. daily Continue sertraline - Doing well today. More ambulatory and awake. (5) Hyperlipidemia: Chronic. Continue lovastatin 40 mg p.o. every afternoon (6) Hypertension: Blood pressure stable at 125/65 today. Continue amlodipine 10 mg p.o. every morning (7) DVT prophylaxis: SCDs - Given hematochezia, will defer heparin for now. Admission and Anticipated Discharge Date Admission Date: January 04, 2020 Subjective More awake and alert today. Able to ambulate to the bathroom and back. Reports no fevers/chills, chest pain, shortness of breath, abdominal pain, nausea, or vomiting. Physical Exam Constitutional: WD/WN, vitals as above + physical limitations Eyes: EOM intact bilaterally; no conjunctival abnormality ENMT: external ear and nose normal, oropharynx normal Neck: trachea midline, no thyromegaly normal visual inspection Respiratory: normal respiratory effort, lungs clear to auscultation no respiratory distress Cardiovascular: RRR, no murmur, no edema Gastrointestinal (Abdomen): Inspection/Auscultation: abdomen normal to inspection; abdomen not distended Rectal Exam: + rectal tenderness; normal sphincter tone and + abnormal visual inspection of rectum (Mild hematochezia) Musculoskeletal: no cyanosis or clubbing, extremities motor strength 5/5 Skin: no rashes, warm and dry Neurologic: moves all extremities and awake Psychiatric: Orientation: alert and cooperative; + not oriented x 3 Results & Data Results & Data ([facility]) Vital Signs (Past 12 Hours) Vital Signs Pulse Resp BP 01/05/20 06:57 83 18 124/63 PG Care Time/CCT Total # of Minutes Spent Total Time Spent with Patient: Total time spent is greater than 50% in coordination of care (as documented) at patient's floor/unit and/or counseling patient: Coding Level of Care Code 16357 Subseq Hosp Care Lvl 2 Diagnoses Hematochezia K92.1 Atrial fibrillation I48.91 Atrial fibrillation type: unspecified BPH (benign prostatic hyperplasia) N40.0 Lower urinary tract symptom presence: symptoms absent Dementia G30.9; F02.81 Dementia type: Alzheimer's disease Alzheimer's disease onset: unspecified onset Dementia behavioral disturbance: with behavioral disturbance Hyperlipidemia E78.5 Hyperlipidemia type: unspecified Hypertension I10 Hypertension type: essential hypertension DVT prophylaxis Z29.9 (1) Atrial fibrillation Atrial fibrillation type: unspecified Qualified Code(s): I48.91 - Unspecified atrial fibrillation (2) BPH (benign prostatic hyperplasia) Lower urinary tract symptom presence: symptoms absent Qualified Code(s): N40.0 - Benign prostatic hyperplasia without lower urinary tract symptoms (3) Dementia Dementia type: Alzheimer's disease Alzheimer's disease onset: unspecified onset Dementia behavioral disturbance: with behavioral disturbance Qualified Code(s): G30.9 - Alzheimer's disease, unspecified; F02.81 - Dementia in other diseases classified elsewhere with behavioral disturbance (4) Hyperlipidemia Hyperlipidemia type: unspecified Qualified Code(s): E78.5 - Hyperlipidemia, unspecified (5) Hypertension Hypertension type: essential hypertension Qualified Code(s): I10 - Essential (primary) hypertension
[2020-01-05] MEDS: HALOPERIDOL LACTATE 5 MG/ML 1 ML VIAL IM PRN ×2 (17:22→23:29)
[2020-01-05] MEDS ORDERED: HALOPERIDOL LACTATE 5 MG/ML 1 ML VIAL IM ONE (20:22)
[2020-01-05] MEDS: ALFUZOSIN HCL 10 MG TAB PO SCH (21:32)
[2020-01-05] MEDS: LOVASTATIN 20 MG TAB PO SCH (21:32)
[2020-01-05] MEDS: FINASTERIDE 5 MG TAB PO SCH (21:32)
[2020-01-05] MEDS: SERTRALINE HCL 50 MG TABLET PO SCH (21:32)
[2020-01-05] MEDS: SERTRALINE HCL 100 MG TABLET PO SCH (21:32)
[2020-01-06] MEDS: MEMANTINE HCL 5 MG TAB PO SCH (11:06)
[2020-01-06] MEDS: DOCUSATE SODIUM/SENNA 50/8.6MG TAB PO SCH (11:07)
[2020-01-06] MEDS: METOPROLOL SUCC 25MG EXT REL TAB PO SCH (11:07)
[2020-01-06] MEDS: ANUSOL SUPP 1 EA PR SCH (11:07)
[2020-01-06] MEDS: MIRABEGRON ER 25 MG TAB PO SCH (11:07)
[2020-01-06] MEDS: POLYETHYLENE (MIRALAX) 17 GM PACK PO SCH (11:07)
[2020-01-06] MEDS: CYANOCOBALAMIN 500 MCG TABLET (VITAMIN B-12) PO SCH (11:08)
[2020-01-06] MEDS: AMLODIPINE BESYLATE 5 MG TAB PO SCH (11:08)
[2020-01-06] MEDS: ACETAMINOPHEN 500 MG TAB PO SCH (11:08)
[2020-01-06] MEDS: DONEPEZIL HCL 10 MG TAB PO SCH (11:08)
[2020-01-06] MEDS: QUETIAPINE FUMARATE 25 MG TABLET PO SCH (11:09)
[2020-01-06] MEDS: TRAMADOL HCL 50 MG TABLET PO SCH ×2 (11:10→13:40)
--- NOTE | 2020-01-06 16:09 | Discharge Summary ---
Date of Service January 06, 2020 Admission HPI Per Admitting Provider Patient with underlying dementia, unable to provide history or participate in exam. Information gleaned through chart review and discussion with ER staff. Anurag Ashton is an 79-year-old male history of dementia, hypertension, hyperlipidemia, atrial fibrillation on Eliquis anticoagulation presenting from [facility] with reported 3 days of hematochezia. No additional complaints mentioned. In the ER, patient afebrile, hemodynamically stable, no acute distress. Patient had a CT of the abdomen which revealed fecal impaction and perirectal stranding consistent with stercoral colitis. Patient had large explosive bowel movement upon return from CT. Stool noted to be brown/maroon and Hemoccult positive. Rectal exam unsuccessful due to discomfort. Patient refusing. ER course: Evening medications administeredsertraline 50 mg, Seroquel 50 mg, Haldol 2 mg IV, Protonix 40mg IV x 1 dose, NSS x 500mL Principal Diagnosis Stercoral colitis/proctitis Discharge Exam Constitutional WD/WN, vitals as above + physical limitations Eyes EOM intact bilaterally; no conjunctival abnormality ENMT external ear and nose normal, oropharynx normal Neck trachea midline, no thyromegaly normal visual inspection Respiratory normal respiratory effort, lungs clear to auscultation no respiratory distress Cardiovascular RRR, no murmur, no edema Gastrointestinal (Abdomen) Inspection/Auscultation: abdomen normal to inspection; abdomen not distended Rectal Exam: + rectal tenderness; normal sphincter tone and + abnormal visual inspection of rectum (Mild hematochezia) Musculoskeletal no cyanosis or clubbing, extremities motor strength 5/5 Skin no rashes, warm and dry Neurologic moves all extremities and awake Psychiatric Orientation: alert and cooperative; + not oriented x 3 Discharge Data Allergies Allergy/AdvReac Type Severity Reaction Status Date / Time Penicillins Allergy Unknown rash Verified 06/12/19 12:31 valacyclovir [From Valtrex] AdvReac Dizziness Verified 06/12/19 12:31 Consultations 01/03/20 22:48 ED Decision to Admit Stat Ordered Studies 01/03/20 20:53 CT abd pelvis IV con only Urgent Hospital Course (1) Hematochezia: CT a/p on 01/02 was suggestive of stercoral colitis, possible fecal impaction. Suspect symptoms from fecal impaction resulting in stercoral colitis which will hopefully resolve with improving stooling. Held apixaban - Continue stool softener. Added steroid suppository on 01/03 for possible hem orrhoid and proctitis. - By 01/04 & 01/05, the bleeding had resolved. He was passing brown soft stool. Hemoglobin remained stable at ~13.5 the entire admission. Discussed with GI. Will hold his apixaban for 3 more days, then restart. Aim to have 1 soft BM per day to avoid recurrent rectal irritation. If he has more bleeding, would hold his anticoagulation and refer him to GI or colorectal surgeon for a sigmoidoscopy to ensure no mass/lesion (ie cancer). (2) Atrial fibrillation: Rate controlled, anticoagulated on apixaban at baseline. Continue metoprolol 25 mg p.o. every morning Holding apixaban as above Continue to monitor (3) BPH (benign prostatic hyperplasia): Chronic. Stable. Continue finasteride per formulary (instead of dutasteride). Continue alfuzosin (4) Dementia: Patient with severe dementia, behavioral disturbances. One-to-one observation as needed. Continue Aricept 23 mg p.o. every morning Continue Haldol 5 mg IM every 6 hours as needed Continue memantine 5 mg p.o. twice daily Continue Seroquel 50 mg p.o. nightly, 25 mg p.o. daily Continue sertraline - Doing well today. More ambulatory and awake. (5) Hyperlipidemia: Chronic. Continue lovastatin 40 mg p.o. every afternoon (6) Hypertension: Blood pressure stable at 125/65 today. Continue amlodipine 10 mg p.o. every morning (7) DVT prophylaxis: SCDs - Given hematochezia, will defer heparin for now. Total Time Total Time Spent Total Time Spent (In Minutes): 35 Discharge Plan Discharge Items Patient Disposition: Trans Resident Long-Term Care Reason For Visit: HEMATOCHEZIA Discharge Diagnosis: Hematochezia Activity: Resume your previous activity Non-emergency contact: Primary Care Provider Call non-emergency contact if: your symptoms worsen Follow-up/Referrals: Erica Brito [Primary Care Provider] - Diet: Heart Healthy Addtl Attending Provider Instructions: Mr. Ashton was admitted for hematochezia (blood in stool) for 3 days. He underwent a CT scan here which showed large fecal load and proctitis. This was though to be stercoral colitis, or irritation due to the fecal impaction. The oral contrast itself was a good bowel regimen, and he began to have soft bowel movements essentially right away on admission. We continued a bowel regimen here along with steroid suppositories to help reduce inflammation. We also held his apixaban for afib. The bowel movements remained soft, and the bleeding resolved over the course of about 2 days. His hemoglobin was stable at 13 - 14 the entire admission. On discharge, his BMs were daily and getting slightly loose, so his bowel regimen could be tapered slightly. The goal would be 1-2 soft, but formed BMs per day. I would restart his apixaban on 01/10/2020 to give him some time to heal. After restarting anticoagulation, if the bleeding re-starts, hydrocortisone suppositories could be attempted for any hemorrhoids/rectal irritation. Also, I would recommend stopping his apixaban and referral to a colorectal surgeon or GI doctor. At that time, he might need colonoscopy or proctoscopy to ensure there is no lesion (cancer) or other anatomic issue. Pending Studies at Discharge: No Stand-Alone Forms: [facility] Skilled Items Patient informed of condition?: Yes DNR: Yes Discharge Level of Care: Skilled Communicable Disease: No Discharge Prognosis: Improving Lines: None Urinary Catheter: No Medications and DC Order Prescriptions: New polyethylene glycol 3350 [Miralax] 17 gram Powder In Packet 17 g PO HS PRN (Reason: If not bowel movement that day.) Qty: 1 RF: 0 Continued cyanocobalamin (vitamin B-12) [Vitamin B-12] 1,000 mcg tablet extended release 1,000 mcg PO QAM RF: 0 acetaminophen 500 mg tablet 1,000 mg PO DAILY RF: 0 sertraline 50 mg tablet 50 mg PO PM RF: 0 memantine 5 mg tablet 5 mg PO BID RF: 0 Myrbetriq 50 mg tablet extended release 24 hr 50 mg PO QAM RF: 0 Abh Gel 1 applic topical BID RF: 0 quetiapine [Seroquel] 25 mg Tablet 25 mg PO DAILY RF: 0 acetaminophen [Tylenol] 325 mg Tablet 650 mg PO Q6 PRN (Reason: Fever Or Pain) RF: 0 sennosides-docusate sodium [Senokot-S] 8.6-50 mg Tablet 1 tab-cap PO BID RF: 0 sertraline 100 mg Tablet 100 mg PO QPM RF: 0 tramadol [Ultram] 50 mg tablet 50 mg PO TID RF: 0 bisacodyl [Dulcolax (bisacodyl)] 10 mg Suppository 10 mg RI UD PRN (Reason: Constipation) RF: 0 haloperidol lactate [Haldol] 5 mg/mL solution 5 mg IM Q6 PRN (Reason: Agitation) RF: 0 quetiapine [Seroquel] 50 mg Tablet 50 mg PO HS RF: 0 Frozen Nutritional Treat 1 dose PO DAILY RF: 0 amlodipine 10 mg Tablet 10 mg PO QAM RF: 0 donepezil 23 mg Tablet 23 mg PO QAM RF: 0 dutasteride 0.5 mg Capsule 0.5 mg PO PM RF: 0 Fish Oil 120-180-500 mg Capsule 1 cap PO QAM RF: 0 lovastatin 40 mg Tablet 40 mg PO PM RF: 0 metoprolol succinate 25 mg Tablet Extended Release 24 Hr 25 mg PO QAM RF: 0 alfuzosin 10 mg tablet extended release 24 hr 10 mg PO PM RF: 0 Discontinued Eliquis 5 mg tablet 5 mg PO BID Qty: 60 RF: 0 Discharge Orders: Discharge Order (Routine); Ordered 01/06/20 Ordered By: Zac Fischer Admission Data Admit Date/Time: 01/05/20 16:15 Attending Provider: Zac Fischer Admit Provider: Kianna Lancaster Primary Care Provider: Erica Brito Other Providers: Zac Fischer ; Erica Brito Other Interventions: Discharge Summary Assessment (RN) Last Done: 01/06/20 10:56 Coding Level of Care Code D/C Day Management >30 mins Diagnoses Hematochezia K92.1 Atrial fibrillation I48.91 Atrial fibrillation type: unspecified BPH (benign prostatic hyperplasia) N40.0 Lower urinary tract symptom presence: symptoms absent Dementia G30.9; F02.81 Dementia type: Alzheimer's disease Alzheimer's disease onset: unspecified onset Dementia behavioral disturbance: with behavioral disturbance Hyperlipidemia E78.5 Hyperlipidemia type: unspecified Hypertension I10 Hypertension type: essential hypertension DVT prophylaxis Z29.9
== END 2020-01-06 15:15 | DRG 392 ==
LOC: 2W 18:43 → ED 18:43 → SUATTDRO 01-04 00:12 → 2W 01-04 00:38